=== PATIENT | male | born 1945 | race Caucasian/White ===

== ENCOUNTER 2021-05-18 08:58 | Outpatient (CLI) | payer OTHER | END 2021-05-18 08:59 | disposition home or self-care (01) | LOC: RAD 08:58 | PROVIDERS: ATTEND Internal Medicine Critical Care Medicine | DX: R06.00 Dyspnea, unspecified (principal); J98.4 Other disorders of lung; R91.8 Other nonspecific abnormal finding of lung field; Z98.890 Other specified postprocedural states | CPT/HCPCS: 71046 ==

== ENCOUNTER 2023-05-28 07:36 | Outpatient (CLI) | payer MEDICARE | END 2023-05-28 07:37 | disposition home or self-care (01) | LOC: RAD 07:36 | PROVIDERS: ATTEND Internal Medicine Critical Care Medicine | DX: R06.00 Dyspnea, unspecified (principal) | CPT/HCPCS: 71046 ==

== ENCOUNTER 2024-05-28 08:20 | Outpatient (CLI) | payer MEDICARE | END 2024-05-28 08:21 | disposition home or self-care (01) | LOC: RAD 08:20 | PROVIDERS: ATTEND Internal Medicine Critical Care Medicine | DX: R06.00 Dyspnea, unspecified (principal); M47.814 Spondylosis without myelopathy or radiculopathy, thoracic region; R91.8 Other nonspecific abnormal finding of lung field; J98.4 Other disorders of lung | CPT/HCPCS: 71046 ==

== ENCOUNTER 2025-05-28 08:48 | Outpatient (CLI) | payer MEDICARE | END 2025-05-28 08:49 | disposition home or self-care (01) | LOC: RAD 08:48 | PROVIDERS: ATTEND Internal Medicine Critical Care Medicine | DX: R06.00 Dyspnea, unspecified (principal) | CPT/HCPCS: 71046 ==

== ENCOUNTER 2025-06-06 12:08 | Observation (INO) | payer MEDICARE ==
[2025-06-06 14:25] LABS: #Basophils 0.04 10x3/uL (0.0-0.2); #Eosinophils 0.08 10x3/uL (0.0-0.7); #Monocytes 0.52 10x3/uL (0.11-0.59); #Neutrophils 3.71 10x3/uL (1.40-6.50); %Basophils 0.6 % (0.0-1.0); %Eosinophils 1.3 % (0.0-10.0); %Lymphocytes 30.2 % (21.0-51.0); %Monocytes 8.3 % (0.0-10.0); %Neutrophils 59.3 % (42.0-75.0); Hematocrit 43.5 % (42.0-52.0); Hemoglobin 14.8 g/dL (14.0-18.0); Mean Corpuscular Hemoglobin 32.5 pg (27.0-31.0); Mean Corpuscular Volume 95.4 fL (78.0-98.0); Platelet Count 197 10x3/uL (130-400); Red Blood Cell (RBC) Count 4.56 mill/uL (4.70-6.10); White Blood Cell (WBC) Count 6.26 10x3/uL (4.8-10.8)
[2025-06-06] MEDS ORDERED: Iopamidol-370 76% 500 ML MDV (1 ML CHARGE) ONE (14:35)
[2025-06-06 14:42] LABS: ALT (SGPT) 14 U/L (Less than 45); AST (SGOT) 21 U/L (11-34); Albumin 4.5 g/dL (3.1-4.5); Alkaline Phosphatase 51 U/L (40-110); Anion Gap 15 mmol/L (10-20); BUN (Urea Nitrogen) 17 mg/dL (8.4-25.7); Bilirubin, Total 0.7 mg/dL (0.3-1.2); Calc. Creatinine Clearance 0 mL/min (70-130); Calcium 9.3 mg/dL (7.8-10.44); Carbon Dioxide 25 mmol/L (23-31); Chloride 104 mmol/L (98-107); Globulin 2.5 g/dL (2.4-3.5); Glucose 113 mg/dL (83-110); Potassium 4.8 mmol/L (3.5-5.1); Sodium 139 mmol/L (136-145)
[2025-06-06] MEDS ORDERED: Acetaminophen 500 MG TAB ONE (15:21)
[2025-06-06 16:46] LABS: INR-International Normal Ratio 1.1; PTT 31.7 sec (22.9-36.1); Prothrombin Time 13.8 sec (12.0-14.7)
[2025-06-06 16:54] LABS: Magnesium 1.9 mg/dL (1.6-2.6)
[2025-06-06 17:57] LABS: Cardiac Risk 3.2 (Less than 4.5); Cholesterol 127.0 mg/dl (< 200 Desired); HDL Cholesterol 40.0 mg/dL (>60 Neg Risk); LDL Cholesterol, Calculated 66.0 mg/dL; Triglycerides 105.0 mg/dL (Less than 150)
[2025-06-06 20:12] VITALS: BMI 30.9
[2025-06-06] MEDS: Acetaminophen 325 MG TAB PO PRN (21:34)
[2025-06-06] MEDS: metFORMIN 500 MG TAB PO SCH (22:27)
[2025-06-07 05:01] LABS: #Basophils 0.03 10x3/uL (0.0-0.2); #Eosinophils 0.15 10x3/uL (0.0-0.7); #Monocytes 0.51 10x3/uL (0.11-0.59); #Neutrophils 2.58 10x3/uL (1.40-6.50); %Basophils 0.5 % (0.0-1.0); %Eosinophils 2.4 % (0.0-10.0); %Lymphocytes 48.4 % (21.0-51.0); %Monocytes 8.0 % (0.0-10.0); %Neutrophils 40.4 % (42.0-75.0); Hematocrit 38.5 % (42.0-52.0); Hemoglobin 12.9 g/dL (14.0-18.0); Mean Corpuscular Hemoglobin 32.5 pg (27.0-31.0); Mean Corpuscular Volume 97.0 fL (78.0-98.0); Platelet Count 175 10x3/uL (130-400); Red Blood Cell (RBC) Count 3.97 mill/uL (4.70-6.10); White Blood Cell (WBC) Count 6.37 10x3/uL (4.8-10.8)
[2025-06-07 05:14] LABS: Anion Gap 13 mmol/L (10-20); BUN (Urea Nitrogen) 18 mg/dL (8.4-25.7); Calc. Creatinine Clearance 76 mL/min (70-130); Calcium 8.9 mg/dL (7.8-10.44); Carbon Dioxide 25 mmol/L (23-31); Chloride 104 mmol/L (98-107); Glucose 91 mg/dL (83-110); Potassium 4.1 mmol/L (3.5-5.1); Sodium 138 mmol/L (136-145)
[2025-06-07] MEDS: Aspirin 325 MG TAB PO SCH (08:22)
[2025-06-07] MEDS: Rosuvastatin 20 MG TAB PO SCH (08:22)
[2025-06-07] MEDS: Metoprolol Succinate XL 25 MG ER.TAB PO SCH (08:22)
[2025-06-07] MEDS: Isosorbide Mononitrate 30 MG ER.TAB.S PO SCH (08:22)
[2025-06-08 03:55] LABS: #Basophils 0.03 10x3/uL (0.0-0.2); #Eosinophils 0.12 10x3/uL (0.0-0.7); #Monocytes 0.64 10x3/uL (0.11-0.59); #Neutrophils 2.78 10x3/uL (1.40-6.50); %Basophils 0.4 % (0.0-1.0); %Eosinophils 1.8 % (0.0-10.0); %Lymphocytes 46.7 % (21.0-51.0); %Monocytes 9.5 % (0.0-10.0); %Neutrophils 41.2 % (42.0-75.0); Hematocrit 41.0 % (42.0-52.0); Hemoglobin 13.7 g/dL (14.0-18.0); Mean Corpuscular Hemoglobin 32.1 pg (27.0-31.0); Mean Corpuscular Volume 96.0 fL (78.0-98.0); Platelet Count 175 10x3/uL (130-400); Red Blood Cell (RBC) Count 4.27 mill/uL (4.70-6.10); White Blood Cell (WBC) Count 6.75 10x3/uL (4.8-10.8)
[2025-06-08 04:13] LABS: ALT (SGPT) 12 U/L (Less than 45); AST (SGOT) 16 U/L (11-34); Albumin 3.8 g/dL (3.1-4.5); Alkaline Phosphatase 40 U/L (40-110); Anion Gap 10 mmol/L (10-20); BUN (Urea Nitrogen) 14 mg/dL (8.4-25.7); Bilirubin, Total 0.7 mg/dL (0.3-1.2); Calc. Creatinine Clearance 74 mL/min (70-130); Calcium 8.9 mg/dL (7.8-10.44); Carbon Dioxide 26 mmol/L (23-31); Chloride 104 mmol/L (98-107); Globulin 2.2 g/dL (2.4-3.5); Glucose 101 mg/dL (83-110); Magnesium 2.0 mg/dL (1.6-2.6); Potassium 4.2 mmol/L (3.5-5.1); Sodium 136 mmol/L (136-145)
[2025-06-08 07:49] VITALS: BP 153/80; TEMP 98.4
== END 2025-06-08 11:37 | disposition home or self-care (01) ==
LOC: ERS 12:08 → 2SE 17:05
PROVIDERS: ADMIT Student in an Organized Health Care Education/Training Program; ATTEND Student in an Organized Health Care Education/Training Program
DX: H55.00 Unspecified nystagmus (principal); I10 Essential (primary) hypertension; E11.9 Type 2 diabetes mellitus without complications; I25.10 Atherosclerotic heart disease of native coronary artery without angina pectoris; E78.5 Hyperlipidemia, unspecified; Z95.1 Presence of aortocoronary bypass graft; Z98.890 Other specified postprocedural states; Z79.82 Long term (current) use of aspirin; Z79.84 Long term (current) use of oral hypoglycemic drugs; Z79.899 Other long term (current) drug therapy; Z88.5 Allergy status to narcotic agent; Z88.2 Allergy status to sulfonamides
CPT/HCPCS: 70450; 70496; 70498; 70551; 80048; 80053; 80061; 83036; 83735 ×2; 84484; 85025 ×2; 85610; 85730; 93005; 99285; J7030; Q9967; 36415; 84443; G0378